=== PATIENT | female | born 1935 ===

== ENCOUNTER 2022-09-08 09:02 | Emergency (ER) | payer MEDICARE, OTHER ==
[~2022-09-08] VITALS: Ht 160 cm; Wt 61.4 kg
[2022-09-08 09:15] VITALS: BP 146/86
== END 2022-09-08 12:31 | disposition home or self-care (01) ==
LOC: ER 09:02
DX: R04.0 Epistaxis (principal); Z88.2 Allergy status to sulfonamides
CPT/HCPCS: 99283